=== PATIENT | female | born 1995 | race Caucasian/White ===

== ENCOUNTER 2017-08-15 19:19 | Inpatient (IN) | payer BC ==
[2017-08-15] MEDS ORDERED: Dinoprostone* 10 MG VAG.SUPP VAGINAL ONE (21:00)
--- NOTE | 2017-08-15 21:13 | PN ---
L&D Outpatient: Visit - Reproductive Information Estimated Due Date: 08/19/17 Gestational Age: 39 Weeks and 3 Days : 1 Para: 0 - Reason for Visit Visit Reason: Patient is a 22 y/o morbidly obese (BMI 45) lady with a at 39 weeks and gestational hypertension. She is here for cervical ripening prior to induction of labor. - Patient History Patient History Significant: No L&D Outpatient: ROS - Review of Systems Constitutional: Comfortable CV Complaint: No Respiratory: Shortness of Breath: No Gastrointestinal: No Nausea/Vomiting, Normal Bowel Movement Genitourinary: No Dysuria, No Bleeding, No Leaking Fluid Musculoskeletal: No Complaint Movement: Normal L&D Outpatient: Exam - Cervical Exam Cervical Exam: Cervis is fingertip/closed/25% effaced/posterior with cephalic presentation at - 2 station. - Abdominal Exam Abdomen Exam: Non-Tender, Fundal Height Consistent with Dates - Membranes Membrane Status: Intact - Ultrasound/Biophysical Profile Ultrasound Status: Bedside Exam Ultrasound Findings: Cephalic presentation confirmed by ultrasound. Biophysical Profile: Normal Reactive NST L&D Outpatient: EFM - External Monitor Findings Baseline Heart Rate: 140 External Monitor Findings: Accelerations Present L&D Outpatient: Asses/Plan Assessment: Primigravid patient at 39+ weeks EGA, gestational hypertension and morbid obesity with an unripe cervix. cervidil placed vaginally.
[2017-08-15] MEDS ORDERED: diPHENhydraMINE PO* 50 MG PO ONE (23:02)
[2017-08-16] MEDS ORDERED: Nalbuphine* 20 MG/ML 1 ML VIAL IV ONE (01:05)
[2017-08-16] MEDS ORDERED: Nalbuphine* 10 MG/ML 1 ML VIAL IV ONE (01:05)
[2017-08-16] MEDS ORDERED: Promethazine INJ(RESTRICTED)* 25 MG/ML 1 ML VIAL IV ONE (01:05)
[2017-08-16 01:59] LABS: Hematocrit 34 % (35-47); Hemoglobin 11.1 g/dl (12.0-16.0); Mean Corpuscular HGB Conc 33 g/dl (31-36); Mean Corpuscular Hemoglobin 25 pg (27-31); Mean Corpuscular Volume 74 fL (80-97); Mean Platelet Volume 10.8 um3 (7.4-10.4); Platelet Count 146 10^3/ul (150-450); Red Blood Count 4.55 10^6/ul (4.00-5.40); Red Cell Distribution Width 16 % (10.5-15); White Blood Count 12.4 10^3/ul (3.5-10.8)
[2017-08-16 02:14] LABS: ABS Basophils 0.1 10^3/ul (0-0.2); ABS Eosinophils 0 10^3/ul (0-0.6); ABS Lymphocytes 1.8 10^3/ul (1.0-4.8); ABS Monocytes 0.6 10^3/ul (0-0.8); ABS Neutrophils 9.9 10^3/ul (1.5-7.7); ABS Nucleated RBC 0 10^3/ul; Eosinophil % 0.1 % (0-6); Lymphocyte % 14.9 % (25-47); Nucleated Red Blood Cells % 0.1
[2017-08-16] MEDS ORDERED: Dinoprostone* 10 MG VAG.SUPP VAGINAL ONE ×2 (08:19→22:00)
[2017-08-16] MEDS ORDERED: Penicillin G Potassium IV* 5,000,000 UNITS in NS 0.9% 100 ML* 100 ML IVPB ONE (09:00)
--- NOTE | 2017-08-16 11:18 | HP ---
General Information - General Information Maternal Age: 22 Grav: 1 Para: 0 SAB: 0 IEA: 0 Estimated Due Date: 08/19/17 Determined By: Early Ultrasound Gestational Age in Weeks and Days: 39 Weeks and 3 Days Maternal Blood Type and Rh: B Negative - Results this Serology/RPR Result: Non-Reactive Rubella Result: Immune HBsAg Result: Negative HIV Result: Negative GBS Culture Result: Positive Review of Systems Constitutional: Comfortable CV Complaint: No Respiratory: Shortness of Breath: No Gastrointestinal: No Nausea/Vomiting Genitourinary: No Leaking Fluid Musculoskeletal: No Complaint Neurological: No Headache Movement: Normal Exam Allergies/Adverse Reactions: Allergies No Known Allergies Allergy (Verified 08/15/17 20:21) Lab Values - Entire Visit: Laboratory Tests 08/16/17 08/16/17 01:20 01:20 WBC 12.4 H RBC 4.55 Hgb 11.1 L Hct 34 L MCV 74 L MCH 25 L MCHC 33 RDW 16 H Plt Count 146 L MPV 10.8 H Neut % (Auto) 79.8 Lymph % (Auto) 14.9 L [place] % (Auto) 4.7 Eos % (Auto) 0.1 Baso % (Auto) 0.5 Absolute Neuts (auto) 9.9 H Absolute Lymphs (auto) 1.8 Absolute Monos (auto) 0.6 Absolute Eos (auto) 0 Absolute Basos (auto) 0.1 Absolute Nucleated RBC 0 Nucleated RBC % 0.1 Blood Type B Negative Antibody Screen Negative - Measurements Height: 5 ft 4 in Weight: 270 lb Weight in lbs: 270 Body Mass Index (BMI): 46.3 Pre- Weight: 260 lb Weight Gained This : 10 lbs and 0 ozs Targeted Exam Findings Cervical Exam: Closed Effacement: Thick Station: High Presenting Part: Vertex Membrane Status: Intact EFM Findings - External Monitor Findings Baseline Heart Rate: 140 External Monitor Findings: Accelerations Present, Variability Moderate Contractions: None Assessment/Plan - Obstetrical Risk Factors Obstetrical Risk Factors: GBS Positive, Gestational Hypertension - Plan Plan: Cervical Ripening
[2017-08-16] MEDS: Acetaminophen TAB* 325 MG ONE ×2 (16:03→23:42)
[2017-08-16] MEDS ORDERED: diPHENhydraMINE PO* 50 MG PO PRN (21:46)
[2017-08-16] MEDS ORDERED: Fluconazole 100 MG TAB* TAB PO ONE (21:46)
[2017-08-16] MEDS ORDERED: Acetaminophen TAB* 325 MG PO PRN (23:38)
[2017-08-16] MEDS ORDERED: Acetaminophen TAB* 325 MG ONE (23:41)
[2017-08-17] MEDS ORDERED: Promethazine INJ(RESTRICTED)* 25 MG/ML 1 ML VIAL ONE (05:09)
[2017-08-17] MEDS ORDERED: Nalbuphine* 20 MG/ML 1 ML VIAL IV PRN ×2 (05:10→23:04)
[2017-08-17] MEDS ORDERED: Promethazine INJ(RESTRICTED)* 25 MG/ML 1 ML VIAL IV PRN (05:10)
[2017-08-17] MEDS ORDERED: [UNRECOGNIZED DRUG - REMARK] PO SCH (09:00)
[2017-08-17] MEDS ORDERED: Oxytocin in LR* 20 UNITS/1,000 ML BAG IVPB SCH (11:00)
[2017-08-17] MEDS ORDERED: fentaNYL* 50 MCG/ML 2 ML VIAL (100 MCG VIAL) ONE ×2 (11:20→21:58)
[2017-08-17] MEDS ORDERED: OBEPIDURAL* 250 ML EPIDURAL ONE (11:20)
[2017-08-17] MEDS ORDERED: Sodium Citrate/Citric Acid* 15 ML UDC PO PRN (12:24)
[2017-08-17] MEDS ORDERED: Famotidine TAB* 20 MG PO PRN (12:24)
[2017-08-17] MEDS ORDERED: Phenylephrine IV* 40 MCG/ML 10 ML SYRINGE IV PUSH PRN ×2 (12:24)
[2017-08-17] MEDS: Penicillin G Potassium IV* 2,500,000 UNITS in NS 0.9% 100 ML* 100 ML IVPB SCH ×2 (12:31→16:30)
[2017-08-17] MEDS ORDERED: OBEPIDURAL* 250 ML EPIDURAL SCH (13:00)
[2017-08-17] MEDS ORDERED: ceFOXitin 2 GM IVPREMIX* 2 GM/50 ML BAG IVPB ONE (20:46)
[2017-08-17] MEDS ORDERED: Ketorolac INJ* 30 MG/ML 1 ML VIAL ONE (21:34)
[2017-08-17] MEDS ORDERED: OXYTOCIN* 10 UNITS/ML 1 ML VIAL ONE (21:34)
[2017-08-17] MEDS ORDERED: Lidocaine 2% PF* 10 ML AMP ONE ×4 (21:39→23:46)
[2017-08-17] MEDS ORDERED: Midazolam* 1 MG/ML 2 ML VIAL (2 MG) ONE (21:58)
[2017-08-17] MEDS ORDERED: KETAMINE HCL* 50 MG/ML 10 ML VIAL ONE (21:59)
[2017-08-17] MEDS ORDERED: Morphine PF AMP (0.5MG/ML)* 5 MG/10 ML AMP ONE (22:04)
[2017-08-17] MEDS ORDERED: Propofol* 10 MG/ML 20 ML BTL IV PUSH ONE ×2 (22:19→22:29)
[2017-08-17] MEDS ORDERED: ROPIVACAINE EPIDURAL SCH (23:00)
[2017-08-17] MEDS ORDERED: Ropivacaine 0.1% EPIDURAL 300 ML EPIDURAL SCH ×2 (23:00)
[2017-08-17] MEDS ORDERED: fentaNYL* 50 MCG/ML 2 ML VIAL (100 MCG VIAL) IV PRN (23:02)
[2017-08-17] MEDS ORDERED: oxyCODONE TAB* 5 MG TAB PO PRN (23:02)
[2017-08-17] MEDS ORDERED: Ondansetron INJ* 2 MG/ML VIAL IV PRN ×2 (23:02→23:04)
[2017-08-17] MEDS ORDERED: Acetaminophen IV 1GM/100ML * 1,000 MG/100 ML VIAL IVPB ONE (23:02)
[2017-08-17] MEDS ORDERED: Naloxone* 0.4 MG/ML 1 ML VIAL IV PRN (23:04)
[2017-08-17] MEDS ORDERED: Acetaminophen TAB* 325 MG PO PRN (23:12)
[2017-08-17] MEDS ORDERED: Glycerin ADULT SUPP PR PRN (23:12)
[2017-08-17] MEDS ORDERED: Witch Hazel PAD* JAR TOPICAL PRN (23:12)
[2017-08-17] MEDS ORDERED: Dibucaine 1% 28.35 GM TUBE PR PRN (23:12)
--- NOTE | 2017-08-18 02:47 | OP ---
DATE OF OPERATION: 08/17/17 - ROOM #ICU-102 DATE OF : 89 SURGEON: Riana Spivey MD FIRE EQUIPMENT OPERATOR: Sarah Velasquez CNM ANESTHESIA: Epidural. PRE-OP DIAGNOSIS: Intrauterine gestation at 39 and 2 weeks gestational age, gestational hypertension, contracted pelvis, category 2 heart tracing. POST-OP DIAGNOSIS: Intrauterine gestation at 39 and 2 weeks gestational age, gestational hypertension, contracted pelvis, category 2 heart tracing plus asynclitic presentation. OPERATIVE PROCEDURE: Primary lower transverse section with vacuum assisted delivery of the . FLUIDS: Crystalloid. DRAINS: Kelley catheter. FINDINGS: Female , Apgars 8 and 9, weight 7 pounds 12 ounces. asynclitic in the pelvis with difficult delivery of the head. Normal-appearing uterus, ovaries and tubes. Normal-appearing placenta. SPECIMEN: None. COUNTS: All correct. INDICATIONS: The patient arrived for induction of labor at 39 plus weeks due to gestational hypertension. She received several doses of Cervidil before progressing into labor. She had augmentation of Pitocin and progressed with normal labor progression to become fully dilated. Baby's head had been on high on the pelvis, but came down to -1 station by the time she was 9 cm. She became fully dilated and began pushing; however, there was no descent of the head and moulding was noted. Due to the very small pelvic outlet, the decision was made to proceed with primary section before the head became further lodged in the pelvis. This was discussed thoroughly with the patient and her and they were both very agreeable to the plan. Risks of the procedure were reviewed with the patient, consent was signed, and questions were answered. DESCRIPTION OF PROCEDURE: The patient was taken to the operating room where her epidural anesthesia was redosed and found to be adequate. She was prepped and draped in the dorsal supine position with a leftward tilt. She already had a Kelley catheter in place and SCDs on her legs. A time-out was performed. A Pfannenstiel skin incision was then made with a scalpel carried down to the underlying layer of fascia with the scalpel. The fascia was incised on either side of the midline and the fascial incision extended laterally with the Phipps scissors. The inferior edge of the fascial incision was grasped with Juan clamps, tented up, and dissected down with a combination of sharp and blunt dissection. Then the superior edge of the fascial incision was grasped with Juan clamps, tented up, and dissected down with a combination of sharp and blunt dissection. The rectus muscles were in the midline and the peritoneum was entered bluntly. The peritoneal incision was extended laterally with blunt pressure. The Mir retractor was inserted into the abdominal cavity and twisted to provide good retraction. A transverse incision was then made in the uterus with the scalpel. The incision was then extended superiorly and inferiorly with blunt pressure and the head was brought out of the pelvis, but was present in an angle that made it difficult to bring the head out of the abdominal incision. Therefore, the vacuum suction was applied and with one pull and fundal pressure, the infant's head delivered, followed easily by the shoulders and the rest of the body. The cord was milked towards the baby, then clamped x2 and cut, and the baby was handed to the tack puller machine. Cord blood gases were drawn and the cord blood was collected. The placenta delivered with fundal massage and gentle cord traction and appeared to be intact. The uterus was cleared off clots and debris. The uterus was then exteriorized and the uterine incision was then closed with 0 Vicryl in a running locked fashion with a second layer of suture imbricating the first. There had been a fair amount of bleeding at the right side of the incision, but this was hemostatic after the first suture was placed. The abdomen was then irrigated and the uterus was placed back into the abdominal cavity. The incision was inspected once more and good hemostasis was noted again. The Mir retractor was then removed. The peritoneum was closed with 3-0 Vicryl in a running unlocked fashion. The fascia was closed with 0 Vicryl in a running unlocked fashion. The subcuticular layer was inspected and good hemostasis was noted. This was then closed with 3-0 Vicryl and with several interrupted [id number] sutures. Bovie cautery was used for good hemostasis and then the skin was closed with 4- 0 Monocryl in a running subcuticular fashion. The incision was cleaned. Mastisol and Steri- Strips were placed. The incision was covered with a dressing. The patient was moved to the stretcher and taken to the recovery room in stable condition. [id number]/[facility] #: [id number] [facility]
[2017-08-18] MEDS: Ketorolac INJ* 30 MG/ML 1 ML VIAL IV PRN ×3 (05:51→17:52)
[2017-08-18 06:48] LABS: ABS Basophils 0.1 10^3/ul (0-0.2); ABS Eosinophils 0 10^3/ul (0-0.6); ABS Lymphocytes 1.8 10^3/ul (1.0-4.8); ABS Monocytes 0.5 10^3/ul (0-0.8); ABS Neutrophils 9.4 10^3/ul (1.5-7.7); ABS Nucleated RBC 0 10^3/ul; Eosinophil % 0.4 % (0-6); Hematocrit 26 % (35-47); Hemoglobin 8.7 g/dl (12.0-16.0); Mean Corpuscular HGB Conc 33 g/dl (31-36); Mean Corpuscular Hemoglobin 24 pg (27-31); Mean Corpuscular Volume 74 fL (80-97); Mean Platelet Volume 9.7 um3 (7.4-10.4); Nucleated Red Blood Cells % 0; Platelet Count 127 10^3/ul (150-450); Red Blood Count 3.56 10^6/ul (4.00-5.40); Red Cell Distribution Width 16 % (10.5-15); White Blood Count 11.8 10^3/ul (3.5-10.8)
[2017-08-18] MEDS: Docusate CAP* 100 MG PO SCH ×3 (08:34→20:09)
[2017-08-18] MEDS: Ferrous Gluconate TAB* 324 MG TAB PO SCH ×2 (08:34→20:08)
[2017-08-18] MEDS: oxyCODONE/Acetamin 5/325 MG* TAB PO PRN ×3 (08:35→16:15)
[2017-08-18] MEDS: Simethicone TAB* 80 MG TAB.CHEW PO SCH ×4 (08:36→20:08)
[2017-08-18] MEDS ORDERED: RHO D Immune Globulin (HUMAN)* 300 MCG = 1,500 I.U. INJ IM ONE (10:11)
[2017-08-18] MEDS ORDERED: oxyCODONE/Acetamin 5/325 MG* TAB PO PRN (14:21)
[2017-08-18] MEDS ORDERED: Zolpidem TAB* 5 MG PO PRN (21:00)
[2017-08-19] MEDS: Ibuprofen TAB* 600 MG PO PRN ×4 (00:42→19:33)
[2017-08-19] MEDS: Docusate CAP* 100 MG PO SCH ×3 (08:37→19:33)
[2017-08-19] MEDS: Simethicone TAB* 80 MG TAB.CHEW PO SCH ×3 (08:37→18:03)
[2017-08-19] MEDS: Ferrous Gluconate TAB* 324 MG TAB PO SCH ×2 (08:37→19:33)
[2017-08-19] MEDS: oxyCODONE/Acetamin 5/325 MG* TAB PO PRN (19:33)
[2017-08-19 19:41] VITALS: BP 125/64
--- NOTE | 2017-08-19 20:04 | PTEDU ---
Patient Name: MARKELL PEREZ MARKELL PEREZ selected video: Never Ever Shake a Baby to view on 08/19/2017 at 8:04:07 PM from [facility] [id number]
--- NOTE | 2017-08-19 20:16 | PTEDU ---
Patient Name: MARKELL PEREZ MARKELL PEREZ selected video: BBOB: Nurturing Your Gorgeous &Growing Baby by to view on 08/19/2017 at 8:15:33 PM from [id number]
[2017-08-20] MEDS: Ibuprofen TAB* 600 MG PO PRN ×3 (00:59→16:14)
[2017-08-20] MEDS: oxyCODONE/Acetamin 5/325 MG* TAB PO PRN ×4 (00:59→16:14)
[2017-08-20] MEDS: Simethicone TAB* 80 MG TAB.CHEW PO SCH ×2 (07:54→12:14)
[2017-08-20] MEDS: Docusate CAP* 100 MG PO SCH ×2 (07:54→12:14)
[2017-08-20] MEDS: Ferrous Gluconate TAB* 324 MG TAB PO SCH (07:54)
== END 2017-08-20 18:30 | disposition home or self-care (01) | DRG 540 ==
LOC: MCHOBOUT 19:19 → MCHOB 08-16 08:14
PROVIDERS: ADMIT Obstetrics & Gynecology; ATTEND Obstetrics & Gynecology
PROC: 3E033VJ Introduction of Other Hormone into Peripheral Vein, Percutaneous Approach (ICD-10-PCS; 2017-08-17)
PROC: 10907ZC Drainage of Amniotic Fluid, Therapeutic from Products of Conception, Via Natural or Artificial Opening (ICD-10-PCS; 2017-08-17)
PROC: 4A1H7CZ Monitoring of Products of Conception, Cardiac Rate, Via Natural or Artificial Opening (ICD-10-PCS; 2017-08-17)
PROC: 10D00Z1 Extraction of Products of Conception, Low, Open Approach (ICD-10-PCS; principal; 2017-08-17 21:24)
DX: O32.4XX0 Maternal care for high head at term, not applicable or unspecified (principal); Z68.42 Body mass index [BMI] 45.0-49.9, adult; O13.4 Gestational [pregnancy-induced] hypertension without significant proteinuria, complicating childbirth; O99.214 Obesity complicating childbirth; E66.01 Morbid (severe) obesity due to excess calories; O99.824 Streptococcus B carrier state complicating childbirth; O99.344 Other mental disorders complicating childbirth; O90.81 Anemia of the puerperium; D64.9 Anemia, unspecified; Z3A.39 39 weeks gestation of pregnancy; Z37.0 Single live birth
CPT/HCPCS: 36415; 59200; 85025; 85461; 86850; 86900; 86901; A9270-GY; J0694; J1885; J2001; J2250; J2300; J2540; J2550; J2590; J2704; J2790; J2795; J3010